=== PATIENT | female | born 1970 | race Caucasian/White ===

== ENCOUNTER 2018-09-14 08:58 | Emergency (ER) | payer BC, OTHER ==
[2018-09-14] MEDS ORDERED: Sodium Chloride 0.9% 10 ML Syringe FLUSH PRN (09:47)
--- NOTE | 2018-09-14 10:03 | EDM.PDOC ---
ED HPI GENERAL MEDICAL PROBLEM - General Chief Complaint: Skin Complaint Stated Complaint: LUMP IN ABDOMEN Time Seen by Provider: 09/14/18 09:07 Source of Information: Reports: Patient History Limitations: Reports: No Limitations - History of Present Illness INITIAL COMMENTS - FREE TEXT/NARRATIVE: 48 y/o female presents to ER with cc left lower abdominal wall tenderness and redness. She reports that two days ago she noticed her old surgical site was becoming tender and warm to touch. She reports she noticed a lump that is getting bigger. June 2018 she was diagnosis with a abscess of sigmoid colon, diverticulitis of colon with perforation. She under went surgical intervention by Dr. Jackson in [place]. She has been doing well since this procedure except for the past few days. She denies fever, chills, back pain, nausea, vomiting or diarrhea. She reports nothing makes it better or worse. She reports she ate last this morning at 0800. Onset Date: 09/13/18 Onset Time: 09:00 Duration: Getting Worse Location: Reports: Abdomen Quality: Reports: Ache Severity: Mild Improves with: Reports: None Worsens with: Reports: None Associated Symptoms: Reports: No Other Symptoms. Denies: Chest Pain, Cough, Fever/Chills, Nausea/Vomiting, Shortness of Breath, Weakness Left Lower Abdomen Pain Score (Numeric/FACES): 4 - Related Data Allergies Allergy/AdvReac Type Severity Reaction Status Date / Time amoxicillin [From Augmentin] Allergy Rash Verified 07/10/18 14:26 clavulanic acid Allergy Rash Verified 07/10/18 14:26 [From Augmentin] erythromycin base Allergy Stomach Verified 09/14/18 09:13 Ache Home Meds: Home Meds Loratadine [Claritin] 10 mg PO DAILY 09/14/18 [History] Past Medical History Gastrointestinal History: Reports: Diverticulosis, GERD Psychiatric History: Reports: Depression - Past Surgical History GI Surgical History: Reports: Lysis of Adhesions Social & Family History - Tobacco Use Smoking Status *Q: Current Every Day Smoker Years of Tobacco use: 25 Packs/Tins Daily: 1 - Caffeine Use Caffeine Use: Reports: Coffee - Recreational Drug Use Recreational Drug Use: No ED ROS GENERAL - Review of Systems Review Of Systems: See Below Constitutional: Denies: Fever, Chills HEENT: Reports: No Symptoms Respiratory: Denies: Shortness of Breath Cardiovascular: Denies: Chest Pain Endocrine: Reports: No Symptoms GI/Abdominal: Reports: Abdominal Pain, Other (left lower abdominal tenderness with a lump.). Denies: Constipation, Diarrhea, Decreased Appetite, Mucous in Stool, Nausea, Stool Incontinence, Vomiting : Reports: No Symptoms Musculoskeletal: Denies: Back Pain Skin: Reports: Other (left lower quadrant erythema ) Neurological: Reports: No Symptoms Psychiatric: Reports: No Symptoms Hematologic/Lymphatic: Reports: No Symptoms Immunologic: Reports: No Symptoms ED EXAM, SKIN/RASH Exam: See Below Exam Limited By: No Limitations General Appearance: Alert, WD/WN, No Apparent Distress Neck: Normal Inspection, Supple, Full Range of Motion Respiratory/Chest: No Respiratory Distress, Lungs Clear, Normal Breath Sounds, No Accessory Muscle Use, Chest Non-Tender Cardiovascular: Normal Peripheral Pulses, Regular Rate, Rhythm, No Edema, No Gallop, No JVD, No Murmur, No Rub GI/Abdominal: Normal Bowel Sounds, Soft, No Organomegaly, No Distention, No Abnormal Bruit, Pelvis Stable, Tender, Other (left lower quardrant 8 cm x 6 cm firm area which is warm and tender to touch. ). No: Distended, Guarding, Rebound (Female) Exam: Normal External Exam Back Exam: Normal Inspection Extremities: Normal Inspection Neurological: Alert, Oriented, CN II-XII Intact, Normal Cognition, Normal Gait Psychiatric: Normal Affect, Normal Mood Lymphatic: No Adenopathy Course - Vital Signs Last Recorded V/S: Last Vital Signs Temp 98.7 F 09/14/18 09:08 Pulse 89 09/14/18 09:08 Resp 16 09/14/18 09:08 BP 145/96 H 09/14/18 09:08 Pulse Ox 97 09/14/18 09:08 - Orders/Labs/Meds Orders: Active Orders 24 hr Category Date Time Status Abdomen Pelvis w Cont [CT] Stat Exams 09/14/18 09:47 Taken Sodium Chloride 0.9% [Normal Saline] 1,000 ml Med 09/14/18 13:15 Active IV ASDIRECTED Sodium Chloride 0.9% [Saline Flush] Med 09/14/18 09:47 Active 10 ml FLUSH ASDIRECTED PRN Saline Lock Insert [OM.PC] Routine Oth 09/14/18 09:47 Ordered Medication Orders Sodium Chloride (Normal Saline) 1,000 mls @ 125 mls/hr IV ASDIRECTED ROXANNE Sodium Chloride (Saline Flush) 10 ml FLUSH ASDIRECTED PRN PRN Reason: Keep Vein Open Last Admin: 09/14/18 10:08 Dose: 10 ml Labs: Laboratory Tests 09/14/18 09/14/18 Range/Units 10:05 10:05 WBC 12.12 H (3.98-10.04) K/mm3 RBC 4.61 (3.98-5.22) M/mm3 Hgb 14.5 D (11.2-15.7) gm/L Hct 43.7 (34.1-44.9) % MCV 94.8 (79.4-94.8) fl MCH 31.5 (25.6-32.2) pg MCHC 33.2 (32.2-35.5) g/dl RDW Std Deviation 59.6 H (36.4-46.3) fL Plt Count 267 D (182-369) K/mm3 MPV 8.9 L (9.4-12.3) fl Neut % (Auto) 69.1 (34.0-71.1) % Lymph % (Auto) 22.2 (19.3-51.7) % [place] % (Auto) 7.9 (4.7-12.5) % Eos % (Auto) 0.4 L (0.7-5.8) Baso % (Auto) 0.2 (0.1-1.2) % Neut # (Auto) 8.36 H (1.56-6.13) K/mm3 Lymph # (Auto) 2.69 (1.18-3.74) K/mm3 [place] # (Auto) 0.96 H (0.24-0.36) K/mm3 Eos # (Auto) 0.05 (0.04-0.36) K/mm3 Baso # (Auto) 0.03 (0.01-0.08) K/mm3 Sodium 136 (136-145) mEq/L Potassium 4.2 (3.5-5.1) mEq/L Chloride 103 (98-107) mEq/L Carbon Dioxide 19 L (21-32) mEq/L Anion Gap 18.2 H (5-15) BUN 13 (7-18) mg/dL Creatinine 0.8 (0.55-1.02) mg/dL Est Cr Clr Drug Dosing 91.83 mL/min Estimated GFR (MDRD) > 60 (>60) mL/min BUN/Creatinine Ratio 16.3 (14-18) Glucose 83 (74-106) mg/dL Calcium 9.0 (8.5-10.1) mg/dL Total Bilirubin 0.5 (0.2-1.0) mg/dL AST 15 (15-37) U/L ALT 16 (14-59) U/L Alkaline Phosphatase 99 (46-116) U/L Total Protein 8.0 (6.4-8.2) g/dl Albumin 3.4 (3.4-5.0) g/dl Globulin 4.6 gm/dL Albumin/Globulin Ratio 0.7 L (1-2) Meds: Medications Generic Name Dose Route Start Last Admin Trade Name Freq PRN Reason Stop Dose Admin Sodium Chloride 1,000 mls @ 125 mls/hr 09/14/18 13:15 Normal Saline IV ASDIRECTED ROXANNE Sodium Chloride 10 ml 09/14/18 09:47 09/14/18 10:08 Saline Flush FLUSH 10 ml ASDIRECTED PRN Administration Keep Vein Open Discontinued Medications Generic Name Dose Route Start Last Admin Trade Name Freq PRN Reason Stop Dose Admin Diatrizoate Meglum/Diatrizoate Sod 90 ml 09/14/18 10:52 09/14/18 11:20 Gastrografin 37% PO 09/14/18 10:53 90 ml ONETIME ONE Administration Iohexol 90 ml 09/14/18 10:52 09/14/18 11:21 Omnipaque-300 IVPUSH 09/14/18 10:53 90 ml ONETIME ONE Administration - Re-Assessments/Exams Free Text/Narrative Re-Assessment/Exam: 09/14/18 11:33 WBC 12.12 RBC 4.61 hemoglobin 14.5 hematocrit 43.7 sodium 136 potassium 4.2 chloride 103 CO2 19 x [address] abdomen results pending. 09/14/18 12:37 Cat scan revealed transmural thickening of the sigmoid with adjacent inflammatory change in the setting of the diverticulosis consistent with diverticulitis. Ther is a adjacent peripherally thick walled fluid and gas containing collection interposed between the sigmoid and closely opposed and the uterine fundus consistent with perforation and abscess, measuring 3.8 x 5.9 cm. There is a partially loculated component of more simple low density fluid with N personable wall extending from the region of abscess down to the left adnexal region into the cul-de-sac. Spoke with Dr. Estes who recommended she go back to [place] for further evaluation and treatment. 09/14/18 12:[address] Marsh at [facility] who agreed to admit patient for further evaluation and treatment. I discussed plan of care with patient and she is in agreement for transfer. She is stable at time of transfer. 09/14/18 13:23 Departure - Departure Time of Disposition: 12:56 Disposition: DC/Tfer to Acute Hospital 02 Condition: Good Clinical Impression: Perforated diverticulum - Discharge Information Referrals: PCP,None [Primary Care Provider] - Forms: ED Department Discharge - My Orders Last 24 Hours: My Active Orders 09/14/18 09:47 Abdomen Pelvis w Cont [CT] Stat Sodium Chloride 0.9% [Saline Flush] 10 ml FLUSH ASDIRECTED PRN Saline Lock Insert [OM.PC] Routine 09/14/18 13:15 Sodium Chloride 0.9% [Normal Saline] 1,000 ml IV ASDIRECTED - Assessment/Plan Last 24 Hours: My Active Orders 09/14/18 09:47 Abdomen Pelvis w Cont [CT] Stat Sodium Chloride 0.9% [Saline Flush] 10 ml FLUSH ASDIRECTED PRN Saline Lock Insert [OM.PC] Routine 09/14/18 13:15 Sodium Chloride 0.9% [Normal Saline] 1,000 ml IV ASDIRECTED
[2018-09-14] MEDS ORDERED: Diatrizoate Meglumine/Diatrizoate Sodium 37% 120 ML Bottle PO ONE (10:52)
[2018-09-14] MEDS ORDERED: Iohexol 647 MG/ML 100 ML Bottle IVPUSH ONE (10:52)
[2018-09-14] MEDS ORDERED: Sodium Chloride 0.9% 1,000 ML IV SCH (13:15)
--- NOTE | 2018-09-16 10:00 | CT ---
CT abdomen and pelvis Technique: Multiple axial sections were obtained from above the dome of the diaphragm inferiorly through the pubic symphysis. Intravenous and oral contrast was utilized. Delayed images were obtained through the bladder. Comparison: Previous CT abdomen and pelvis exam of 07/10/18. Findings: Bowel wall thickening and inflammatory change is seen around the sigmoid colon compatible with persisting diverticulitis. Soft tissue finding is seen within the subcutaneous fat of the left lower abdominal wall most likely due to small subcutaneous abscess measuring 2.4 cm. Bilobed fluid collection is seen within the left adnexa which is adjacent to the area of diverticulitis. This extends into the cul-de-sac and most likely represents persistent abscess. This finding measures up to 7.3 cm in size. Visualized lung bases are clear. Liver and spleen appears within normal limits. Adrenal glands show no nodule. Pancreas is normal. Gallbladder contains no calcified gallstones. Kidneys show symmetric contrast enhancement without hydronephrosis or mass. Spleen appears within normal limits. No retroperitoneal adenopathy is seen. Aorta shows mild atherosclerotic calcification which continues into the iliac vessels. No additional mesenteric abnormalities are seen. Appendix is seen which is normal in size. Bone window settings were reviewed which show vacuum disc phenomena within the L4-L5 and L5-S1 discs. Disc space narrowing is noted at L5-S1. Mild scattered endplate osteophytes are seen throughout the spine. Delayed images show contrast within the ureters and bladder. Impression: 1. Findings compatible with diverticulitis which is persistent from previous study. Fluid collection which is bilobed within the left adnexa extending in the cul-de-sac is seen with measurements up to 7.3 cm compatible with persisting abscess. Small subcutaneous abscess is noted within the subcutaneous fat within the left lower abdomen measuring 2.4 cm. 2. Other incidental findings as noted above. Diagnostic code #5 I agree with preliminary report from [facility], finalized on 09/14/18, 1:10 PM Central Time
== END 2018-09-14 14:15 ==
LOC: JD.ED 08:58
DX: K57.20 Diverticulitis of large intestine with perforation and abscess without bleeding (principal); F17.210 Nicotine dependence, cigarettes, uncomplicated; Z88.1 Allergy status to other antibiotic agents; Z79.899 Other long term (current) drug therapy
CPT/HCPCS: 36415; 74177; 80053; 85025; 99285; J7040; Q9963; Q9967; 99284

== ENCOUNTER 2021-01-04 14:02 | Emergency (ER) | payer BC, OTHER ==
[2021-01-04] MEDS ORDERED: Sodium Chloride 0.9% 10 ML Syringe FLUSH PRN (14:26)
--- NOTE | 2021-01-04 15:01 | CR ---
Chest: Portable view of the chest was obtained. Comparison: No prior chest imaging is available. Heart size and mediastinum are within normal limits. Lungs are clear with no acute parenchymal change. No acute osseous abnormality is appreciated. Impression: 1. Nothing acute is seen on portable chest x-ray. Diagnostic code #1
--- NOTE | 2021-01-04 15:22 | EDM.PDOC ---
ED HPI GENERAL MEDICAL PROBLEM - General Chief Complaint: Chest Pain Stated Complaint: [facility] Time Seen by Provider: 01/04/21 14:16 Source of Information: Reports: Patient, EMS History Limitations: Reports: No Limitations - History of Present Illness INITIAL COMMENTS - FREE TEXT/NARRATIVE: The patient presents by [facility] for chest pain. She works at the [employer] and she started having some chest pain. She was diaphoretic and she got anxious. She did not get short of breath. She has no fever, chills, cough, abdominal pain, nausea or vomiting. She has no history of heart disease. She has no history of HTN, hypercholesterolemia or diabetes. She does smoke. She was given aspirin and nitro. The pain is nearly gone. Onset: Gradual Duration: Hour(s): Location: Reports: Chest Quality: Reports: Sharp Severity: Moderate Improves with: Reports: None Worsens with: Reports: None Associated Symptoms: Reports: Chest Pain. Denies: Confusion, Cough, Fever/Chills, Headaches, Nausea/Vomiting, Shortness of Breath Chest Pain Score (Numeric/FACES): 3 - Related Data Allergies Allergy/AdvReac Type Severity Reaction Status Date / Time amoxicillin [From Augmentin] AdvReac Rash Verified 01/04/21 14:26 clavulanic acid AdvReac Rash Verified 01/04/21 14:26 [From Augmentin] erythromycin base AdvReac Stomach Verified 01/04/21 14:26 Ache Home Meds: Home Meds Loratadine [Claritin] 10 mg PO DAILY 09/14/18 [History] Past Medical History Gastrointestinal History: Reports: Diverticulosis, GERD Psychiatric History: Reports: Depression - Past Surgical History GI Surgical History: Reports: Lysis of Adhesions Social & Family History - Caffeine Use Caffeine Use: Reports: Coffee ED ROS GENERAL - Review of Systems Review Of Systems: See Below Constitutional: Reports: No Symptoms HEENT: Reports: No Symptoms Respiratory: Reports: No Symptoms Cardiovascular: Reports: Chest Pain Endocrine: Reports: No Symptoms GI/Abdominal: Reports: No Symptoms : Reports: No Symptoms Musculoskeletal: Reports: No Symptoms Skin: Reports: No Symptoms ED EXAM, GENERAL - Physical Exam Exam: See Below Exam Limited By: No Limitations General Appearance: Alert, No Apparent Distress Ears: Normal External Exam Nose: Normal Inspection Head: Atraumatic, Normocephalic Neck: Normal Inspection Respiratory/Chest: No Respiratory Distress, Lungs Clear, Normal Breath Sounds Cardiovascular: Regular Rate, Rhythm, No Edema, No Murmur GI/Abdominal: Soft, Non-Tender, No Organomegaly, No Mass Back Exam: Normal Inspection Extremities: Normal Inspection #1 Interpretation EKG Date: 01/04/21 Time: 14:10 Rhythm: NSR Rate (Beats/Min): 58 [place]: Normal P-Wave: Present QRS: Normal ST-T: Normal QT: Normal Course - Vital Signs Last Recorded V/S: Last Vital Signs Temp 97.1 F 01/04/21 14:22 Pulse 66 01/04/21 14:22 Resp 18 01/04/21 14:22 BP 119/72 01/04/21 14:22 Pulse Ox 98 01/04/21 14:22 - Orders/Labs/Meds Orders: Active Orders 24 hr Category Date Time Status Cardiac Monitoring [RC] . DIRECTED Care 01/04/21 14:26 Active Peripheral IV Care [RC] . DIRECTED Care 01/04/21 14:26 Active Sodium Chloride 0.9% [Saline Flush] Med 01/04/21 14:26 Active 10 ml FLUSH ASDIRECTED PRN Peripheral IV Insertion Adult [OM.PC] Stat Oth 01/04/21 14:26 Ordered Medication Orders Sodium Chloride (Sodium Chloride 0.9% 10 Ml Syringe) 10 ml FLUSH ASDIRECTED PRN PRN Reason: Keep Vein Open Last Admin: 01/04/21 14:29 Dose: 10 ml Documented by: KAT Labs: Laboratory Tests 01/04/21 01/04/21 01/04/21 Range/Units 14:19 14:19 14:19 WBC 8.88 (3.98-10.04) K/mm3 RBC 4.73 (3.98-5.22) M/mm3 Hgb 15.7 (11.2-15.7) gm/dl Hct 46.0 H (34.1-44.9) % MCV 97.3 H (79.4-94.8) fl MCH 33.2 H (25.6-32.2) pg MCHC 34.1 (32.2-35.5) g/dl RDW Std Deviation 45.1 (36.4-46.3) fL Plt Count 208 (182-369) K/mm3 MPV 9.5 (9.4-12.3) fl Neut % (Auto) 54.1 (34.0-71.1) % Lymph % (Auto) 35.5 (19.3-51.7) % Iron % (Auto) 8.1 (4.7-12.5) % Eos % (Auto) 1.7 (0.7-5.8) Baso % (Auto) 0.3 (0.1-1.2) % Neut # (Auto) 4.80 (1.56-6.13) K/mm3 Lymph # (Auto) 3.15 (1.18-3.74) K/mm3 Iron # (Auto) 0.72 H (0.24-0.36) K/mm3 Eos # (Auto) 0.15 (0.04-0.36) K/mm3 Baso # (Auto) 0.03 (0.01-0.08) K/mm3 D-Dimer, Quantitative 0.50 (0.19-0.50) mg/L Sodium 140 (136-145) mEq/L Potassium 4.3 (3.5-5.1) mEq/L Chloride 104 (98-107) mEq/L Carbon Dioxide 20 L (21-32) mEq/L Anion Gap 20.3 H (5-15) BUN 26 H (7-18) mg/dL Creatinine 1.1 H (0.55-1.02) mg/dL Est Cr Clr Drug Dosing 65.36 mL/min Estimated GFR (MDRD) 53 (>60) mL/min BUN/Creatinine Ratio 23.6 H (14-18) Glucose 109 H (70-99) mg/dL Calcium 8.7 (8.5-10.1) mg/dL Total Bilirubin 0.2 (0.2-1.0) mg/dL AST 17 (15-37) U/L ALT 27 (14-59) U/L Alkaline Phosphatase 78 (46-116) U/L Troponin I < 0.017 (0.00-0.056) ng/mL Total Protein 7.4 (6.4-8.2) g/dl Albumin 3.7 (3.4-5.0) g/dl Globulin 3.7 gm/dL Albumin/Globulin Ratio 1.0 (1-2) Meds: Medications Generic Name Dose Route Start Last Admin Trade Name Christa PRN Reason Stop Dose Admin Sodium Chloride 10 ml 01/04/21 14:26 01/04/21 14:29 Sodium Chloride 0.9% 10 Ml Syringe FLUSH 10 ml ASDIRECTED PRN Administration Keep Vein Open - Re-Assessments/Exams Free Text/Narrative Re-Assessment/Exam: 01/04/21 15:24 I ordered an IV saline lock, EKG, CXR and labs. Her EKG shows a NSR with no acute changes. Her CXR shows nothing acute. Her CBC and CMP look good. Her troponin and D-dimer are negative. Departure - Departure Time of Disposition: 15:30 Disposition: Home, Self-Care 01 Condition: Good Clinical Impression: Atypical chest pain Forms: ED Department Discharge Additional Instructions: Take tylenol or motrin as needed for pain. Drink plenty of fluids. Follow up with your doctor within a week. Please return if you are worse. Sepsis Event Note (ED) - Focused Exam Vital Signs: Vital Signs Temp Pulse Resp BP Pulse Ox 01/04/21 14:22 97.1 F 66 18 119/72 98 - My Orders Last 24 Hours: My Active Orders 01/04/21 14:26 Cardiac Monitoring [RC] . DIRECTED Peripheral IV Care [RC] . DIRECTED Sodium Chloride 0.9% [Saline Flush] 10 ml FLUSH ASDIRECTED PRN Peripheral IV Insertion Adult [OM.PC] Stat - Assessment/Plan Last 24 Hours: My Active Orders 01/04/21 14:26 Cardiac Monitoring [RC] . DIRECTED Peripheral IV Care [RC] . DIRECTED Sodium Chloride 0.9% [Saline Flush] 10 ml FLUSH ASDIRECTED PRN Peripheral IV Insertion Adult [OM.PC] Stat
== END 2021-01-04 15:40 | disposition home or self-care (01) ==
LOC: JD.ED 14:02
DX: R07.89 Other chest pain (principal); Z88.0 Allergy status to penicillin; Z88.1 Allergy status to other antibiotic agents
CPT/HCPCS: 36415; 71045; 71045-26; 80053; 84484; 85025; 85379; 93005; 93010; 99284; 99285-25